=== PATIENT | female | born 1965 | race Caucasian/White ===

== ENCOUNTER 2018-09-21 10:00 | Outpatient (RCR) | payer MEDICARE, MEDICAID ==
[~2018-09-21 10:00] MED LIST: ATIVAN0.5 MG PO; ATIVAN1 M1 PO; NO MEDS REPORTED; NORCO1 TA1 PO; ONDANSETRON4 MG PO; PROAIR HFA IN; SEROQUEL XR50 MG PO; WELLBUTRIN XL300 MG PO; ZOLOFT100 MG PO
--- NOTE | 2018-09-25 09:56 | NUR ---
09/24/18 1447 Call to patient and left voice message inquiring on how pt is doing.
--- NOTE | 2018-10-01 07:42 | NUR ---
09/28/18 Patients chart is in for review by Treatment team. Doctor made aware that patient has not been compliant with the program nor has she been compliant in seeing Dr. Goldberg. Pt had stated last week that she missed 2 appointments and now her doctor is charging her. Pt states many different excuses for missing all her appointments. Pt also states that [facility] group has dropped her but she is denying that it has nothing to do with non compliancy. Pt denies any suicidal thoughts when last speaking to patient. Pt will be discharged from the program today due to non compliancy. Will follow up with the patient in a few weeks.
--- NOTE | 2018-10-11 07:30 | NUR ---
10/09/18 [id number] Left voicemail with pt in regards to a group called [facility] that will be at [place] today at 1300. Pt made aware of this group upon discharge from the program.
== END 2018-10-18 23:59 | disposition still patient (30) ==
LOC: PATHWAYS 10:00
PROVIDERS: ATTEND Specialist
DX: F31.60 Bipolar disorder, current episode mixed, unspecified (principal); F33.8 Other recurrent depressive disorders; F41.1 Generalized anxiety disorder